=== PATIENT | female | born 2000 ===

== ENCOUNTER 2022-01-15 15:33 | Emergency (ER) | payer BC ==
[2022-01-15] MEDS ORDERED: Ondansetron 4 MG/2 ML SDV IVPUSH ONE (16:12)
[2022-01-15] MEDS ORDERED: Sodium Chloride 0.9% 2.5 ML Syringe FLUSH PRN (16:12)
[2022-01-15] MEDS ORDERED: Sodium Chloride 0.9% 1,000 ML IV ONE (16:12)
[2022-01-15] MEDS ORDERED: Sodium Chloride 0.9% 10 ML Syringe FLUSH PRN (16:12)
[2022-01-15] MEDS ORDERED: HYDROmorphone 1 MG/ML Syringe IVPUSH ONE ×2 (16:13→18:15)
[2022-01-15 17:11] LABS: CARBON DIOXIDE,CO2 24.6 mmol/L (21.0-32.0); POTASSIUM,K 3.7 mmol/L (3.5-5.1)
[2022-01-15] MEDS ORDERED: Tamsulosin 0.4 MG Cap.ER PO ONE (18:21)
== END 2022-01-15 19:16 | disposition home or self-care (01) ==
LOC: MW.ED 15:33
DX: N13.2 Hydronephrosis with renal and ureteral calculous obstruction (principal); N30.00 Acute cystitis without hematuria; Z88.1 Allergy status to other antibiotic agents; Z88.0 Allergy status to penicillin; Z72.0 Tobacco use
CPT/HCPCS: 36415; 74176; 80053; 81001; 81025; 83690; 85025; 96361; 96374; 96375; 96376; 99284; A9270; J1170; J2405; J3490; J7030